=== PATIENT | male | born 1980 | race African-American/Black ===

== ENCOUNTER 2019-02-28 21:45 | Observation (INO) ==
[2019-02-28 22:31] LABS: BASO# 0.02 X1000 (0.0-0.2); BASO% 0.3 % (0.0-0.8); EOS# 0.06 X1000 (0.0-0.7); EOS% 0.9 % (0.0-10.0); HEMATOCRIT 38.2 % (42.0-52.0); LYMPH# 2.27 X1000 (1.2-3.4); LYMPH% 33.4 % (20.5-51.1); MCH 32.2 PG (27-31); MCV 94.6 FL (81-99); MONO# 0.55 X1000 (0.11-0.59); MONO% 8.1 % (1.7-9.3); MPV 10.4 FL (7.4-10.4); NEUT% 57.3 % (42.2-75.2); PLT 202 X1000 (130-400); RBC 4.04 XMIL (4.7-6.1); RDW 11.9 % (11.5-14.5)
[2019-02-28 22:40] LABS: AGAP 13; ALBUMIN 4.6 g/dL (3.5-5.0); ALKALINE PHOSPHATASE 49 U/L (32-122); BUN 9 mg/dL (8-22); CALCIUM 9.7 mg/dL (8.8-10.2); CHLORIDE 98 mmol/L (98-107); COSMO 269; CREATININE 0.6 mg/dL (0.7-1.2); ESTIMATED GFR > 60; GLUCOSE 103 mg/dL (70-104); GOT 35 U/L (10-34); GPT 17 U/L (10-44); POTASSIUM 3.7 mmol/L (3.5-5.1); SODIUM 135 mmol/L (136-145); TCO2 24 mmol/L (25-35); TOTAL PROTEIN 7.3 g/dL (6.3-8.3)
[2019-02-28 23:02] LABS: CK INDEX 0.7 (0.0-2.5); CK-MB 5.05 ng/mL (0.0-5.0)
--- NOTE | 2019-03-01 00:16 | EKG Report ---
Test Performed on : 02/28/2019 10:07:04 PM Test Reason : chest pain Blood Pressure : / mmHG Vent. Rate : 081 BPM Atrial Rate : 081 BPM P-R Int : 140 ms QRS Dur : 078 ms QT Int : 354 ms P-R-T Axes : 059 -32 028 degrees QTc Int : 411 ms Normal sinus rhythm. Left axis deviation Moderate voltage criteria for LVH, may be normal variant Abnormal ECG When compared with ECG of 25-JUL-2018 08:02, No significant change was found Unconfirmed Result
--- NOTE | 2019-03-01 00:24 | PROVIDER DOCUMENTATION ---
This chart was entered by Ambrocio Shields Scribe, acting as scribe for Flower Knight MD. HPI-General Adult - General Chief Complaint: Chest Pain Stated Complaint: BACK PAIN, ELEVATED HEART RATE Time Seen by Provider: 02/28/19 22:30 Source: patient, web editor Allergies/Adverse Reactions: Patient Allergies Allergy/AdvReac Type Severity Reaction Status Date / Time methylphenidate HCl * Allergy Unknown Unknown Verified 02/28/19 21:58 [From Ritalin] Home Medications: Home Medication List Medication Instructions Recorded Confirmed Last Taken Type Haloperidol Decanoate [Haloperidol 100 mg IM DIRECTED 05/08/13 09/16/17 07/16/13 History Decanoate 100] Divalproex Sodium [Divalproex 2,000 mg PO HS 07/20/13 09/16/17 06/12/15 21:00 History Sodium ER] Lisinopril 2.5 mg PO DAILY 07/20/13 09/16/17 06/13/15 07:00 History Lorazepam [Ativan] 1 mg PO BID 07/20/13 09/16/17 06/13/15 07:00 History Metformin HCl 500 gm MC DAILY 07/20/13 09/16/17 06/13/15 07:00 History Olanzapine 20 mg PO BID 07/20/13 09/16/17 06/13/15 07:00 History Ferrous Sulfate 325 mg PO QAM 09/16/17 09/16/17 Unknown History Mupirocin Ointment [Bactroban 1 applicatn TOP TID #1 tube 09/16/17 Unknown Rx Ointment] - History of Present Illness -Gen Adult Nature of Presenting Problems: Pt is a 38 yom who presents to the ED from a [facility] with a correctional casework specialist with a CC of chest pain. Pt's correctional casework specialist states the pt was laying in bed when he started having chest pain. Pt also complains of having back pain and states the pain is between his shoulders. Pt has a mental disability, which makes the HPI, ROS, and physical exam limited. Pt reports having reproducible chest wall pain. Pt complained of pain in multiple places on exam. Pt's correctional casework specialist denies the pt having a fever. Pt's correctional casework specialist also states the pt's blood pressure and heart rate were elevated at the [facility] tonight. Location of Pain/Injury: reports: chest, back, generalized Quality of Pain: reports: aching Severity: reports: mild Onset/Duration: reports: 1-3 hours ago Timing: reports: still present Associated Symptoms: reports: back/neck pain, chest pain, muscle aches Similar Symptoms Previously?: No Recently seen or treated by another doctor?: No Review of Systems - Adult - REVIEW OF SYSTEMS - ADULT Constitutional: reports: see HPI Eyes: reports: no symptoms reported Ears, Nose, Mouth & Throat: reports: no symptoms reported Cardiovascular: reports: see HPI, chest pain Respiratory: reports: no symptoms reported Gastrointestinal: reports: no symptoms reported Genitourinary: reports: no symptoms reported Musculoskeletal: reports: see HPI, back pain, muscle aches Integumentary: reports: no symptoms reported Neurological: reports: no symptoms reported Psychiatric: reports: no symptoms reported Endocrine: reports: no symptoms reported Hematologic/Lymphatic: reports: no symptoms reported Allergic/Immunologic: reports: no symptoms reported All Other Systems: Reviewed and Negative Past History - Adult - PAST MEDICAL HISTORY-ADULT Review of Records: reports: Old Records Reviewed, Nursing Assessment Review, Medications Reviewed, Social history reviewed & non-contributory. Major Childhood Illnesses: reports: denies history Cardiovascular: reports: HTN Respiratory: reports: denies history Gastrointestinal: reports: denies history Obstetrical/Gynecological: reports: denies history Genitourinary: reports: denies history Musculoskeletal: reports: denies history Neurological: reports: other (cognitive impairment) Psychiatric: reports: psychiatric problems, schizophrenia Endocrine/Immune: reports: Diabetes Other Conditions: reports: denies history - PRIOR SURGERIES/PROCEDURES Surgical/Procedure History: reports: none - PRIOR HOSPITALIZATIONS Prior Hospitalizations: reports: none - IMMUNIZATION STATUS Childhood Immunizations: See Nurse Assessment Flu Vaccine: See Nurse Assessment - FAMILY HISTORY Family History: reviewed, not pertinent - SOCIAL HISTORY Smoking: cigarettes, greater than 1 pack/day Substance Use: none/never, denies Alcohol Use Frequency: never Physical Exam-General - PHYSICAL EXAM-ADULT Initial Vital Signs Reviewed: Yes - CONSTITUTIONAL General Appearance: alert, mild distress - EYES Eyes: PERRL/EOMI, pink conjunctivae - HEAD, EARS, NOSE, MOUTH & THROAT HENMT: normocephalic/atraumatic, moist mucous membranes - NECK Neck: non-tender, full range of motion - RESPIRATORY Respiratory: lungs clear, normal breath sounds - CARDIOVASCULAR Cardiovascular: normal peripheral pulses, regular rate, rhythm - GASTROINTESTINAL (ABDOMEN) Abdominal Exam: non tender, soft - MUSCULOSKELETAL Extremity: normal range of motion, non-tender - SKIN Integumentary: normal color, warm/dry - NEUROLOGIC Neurologic: grossly normal, no motor/sensory deficits - PSYCHIATRIC Psych/Mental Status: normal mood/affect, normal thought content, normal thought process, oriented x 3 Progress - PLAN OF CARE/RESULTS Progress/Plan/Lab Results: Vital Signs - 8 hr 02/28/19 21:55 Temperature 98 F Pulse Rate 84 Respiratory Rate 16 Blood Pressure 144/88 O2 Sat by Pulse Oximetry 98 Laboratory Results - last 24 hr 02/28/19 22:13 WBC 6.80 RBC 4.04 L Hgb 13.0 L Hct 38.2 L MCV 94.6 MCH 32.2 H MCHC 34.0 RDW Std Deviation 11.9 Plt Count 202 MPV 10.4 Immature Gran % (Auto) 0.0 Neut % (Auto) 57.3 Lymph % (Auto) 33.4 [place] % (Auto) 8.1 Eos % (Auto) 0.9 Baso % (Auto) 0.3 Immature Gran # (Auto) 0.00 Neut # (Auto) 3.90 Lymph # (Auto) 2.27 [place] # (Auto) 0.55 Eos # (Auto) 0.06 Baso # (Auto) 0.02 Orders Category Date Time Status If abnormal EKG, order: NOW Care 02/28/19 21:58 Active CHEST-2 VIEWS [RAD] Stat Exams 02/28/19 21:58 Ordered CBC WITH DIFF [HEME] Stat Lab 02/28/19 22:13 Completed CK PROFILE [SP CHEM] Stat Lab 02/28/19 22:13 Received COMPREHENSIVE METABOLIC PANEL [CHEM] Stat Lab 02/28/19 22:13 Received TROPONIN T Stat Lab 02/28/19 22:13 Received CP/Palp <45 No Known Cardiac Hx Stat Oth 02/28/19 21:58 Ordered EKG [EKG] Stat Ther 02/28/19 21:58 Ordered Result Diagrams: 02/28/19 22:13 02/28/19 22:13 - EKG 1 Time of EKG reading by physician:: 22:07 EKG Read and Signed by:: lFower Knight EKG Interpretation (*Must complete 3 of following elements*): Abnormal (Moderate voltage criteria for LVH, may be normal variant; No STEMI) Rate: 81 Rhythm: NSR [place]: left QRS: normal [place] Interval: normal ST Wave: normal - CONSULTS/PCP/HOSPITALIST Notification #1 *Consult/PCP/Hospitalist*: d/w Dr Hamilton Time Discussed: 00:50 Consult Disposition: Admit Departure - Departure Date of Disposition Decision: 02/28/19 Time of Disposition Decision: 01:00 DIAGNOSIS: Chest pain Disposition: ADMITTED INPATIENT 09 Certified Medical Emergency: Emergent Condition: Stable Additional Instructions: ED Follow Up Instructions: You have been treated by a care provider in the Emergency Department. These instructions are being provided to you so you can have an understanding of how to care for yourself upon discharge. Upon discharge from the Emergency Department, you are responsible for making arrangements for follow-up care by a physician of your choice. Take all prescribed medications as directed. Return to the Emergency Department immediately for any new or worsening symptoms. You may call the Physician Referral phone number at [phone] to obtain a list of Physicians who are taking new patients. Referrals and Follow-Ups: None,PCP [Primary Care Provider] - - Critical Care Note This patient required my direct & personal management of CC.: No Attestation - Physician/ MALIKA Attestation Patient care was provided by Advanced Practice Provider:: No The physician spent face to face time with patient:: Yes Advanced Practice Provider documentation review:: Supervising physician onsite and consulted in the evaluation and care of this patient. The physician did have a face to face encounter with the patient. This chart was documented by the indicated [email or web address], (Ambrocio Shields Scribe) and accurately reflects the services I performed and decisions made by me, Flower Knight MD, as attested by the provider's signature.
[2019-03-01] MEDS ORDERED: ASPIRIN PO ONE (01:23)
--- NOTE | 2019-03-01 08:29 | Diag Imaging Result Doc PS360 ---
EXAM: CHEST-1 VIEW INDICATION: cp TECHNIQUE: One view COMPARISON: 07/25/2018 FINDINGS: Inspiration is suboptimal. The lungs are grossly clear. There is no discrete pleural fluid collection or pneumothorax. The cardiomediastinal silhouette and central vasculature are grossly unremarkable. IMPRESSION: Somewhat low lung volumes but no definite acute pathology by plain radiograph, otherwise. Electronically signed by Herbert Johnson 03/01/2019 8:27 AM
[2019-03-01 09:19] VITALS: BP 129/87
[2019-03-01] MEDS ORDERED: ZOFRAN IV PRN (12:34)
[2019-03-01] MEDS ORDERED: GEODON IM ONE (12:34)
[2019-03-01] MEDS ORDERED: STERILE WATER INJ. INJ ONE (12:34)
[2019-03-01] MEDS ORDERED: TYLENOL PO PRN (12:34)
[2019-03-01] MEDS ORDERED: PRINIVIL PO SCH (12:45)
[2019-03-01] MEDS ORDERED: ATIVAN PO SCH (12:45)
[2019-03-01] MEDS ORDERED: GLUCOPHAGE PO SCH (12:45)
[2019-03-01] MEDS ORDERED: FERROUS SULFATE PO SCH (12:45)
[2019-03-01] MEDS ORDERED: MYSOLINE PO SCH (12:45)
[2019-03-01] MEDS ORDERED: INDERAL PO SCH (12:45)
[2019-03-01] MEDS ORDERED: ZYPREXA PO SCH (12:45)
[2019-03-01] MEDS ORDERED: NICODERM PATCH TD SCH (12:45)
[2019-03-01] MEDS ORDERED: RISPERDAL PO SCH (12:45)
--- NOTE | 2019-03-01 15:14 | HISTORY AND PHYSICAL ---
CHIEF COMPLAINT: Generalized body ache and reported complaints of chest pain. HISTORY OF PRESENT ILLNESS: Mr. Emmett Gamez is a 38-year-old male with a medical history of schizoaffective disorder, essential tremors, diabetes mellitus type 2 diet medication controlled, who came in late [facility]er. Apparently the chief complaint was chest pain. Viscose Cellar Worker at that time stated that the patient was lying in bed when he started having chest pain complained of back pain, pain between his shoulders and at the time the chest wall pain was reproducible. During my examination it was not reproducible he just complained generalized body aches. There is no fever. All of his vital signs are stable. His lab work is also stable. Cardiac enzymes x3 are negative. There were no ST elevations on EKG. PAST MEDICAL HISTORY: 1. Schizoaffective disorder. 2. Essential tremors. 3. Diabetes mellitus type 2. 4. Mental disability. SURGICAL HISTORY: None. SOCIAL HISTORY: Less than a half pack per day smoker since the age of 22. Denies alcohol or illicit drug use. He lives [facility] a [facility]. FAMILY HISTORY: Unknown. ALLERGIES: Ritalin. HOME MEDICATIONS: 1. Ativan 1 mg p.o. twice a day. 2. Depakote extended release 1500 mg p.o. nightly. 3. Ferrous sulfate 325 mg p.o. daily. 4. Haldol 100 mg IM as directed looks like IM every 2 weeks. 5. Lisinopril 2.5 mg p.o. daily. 6. Metformin 500 mg p.o. daily. 7. Primidone 50 mg p.o. twice daily. 8. Olanzapine 10 mg p.o. twice daily. 9. Propranolol 20 mg p.o. twice daily. 10. Risperidone looks like 1 mg at 7 a.m., 2 mg at 7 p.m. 11. Nicotine patch. 12. Tylenol. REVIEW OF SYSTEMS: Fourteen point review of systems are complete, all are negative except for those mentioned above HPI. PHYSICAL EXAMINATION: VITAL SIGNS: Temperature 98.3 degrees, heart rate 110, respiratory rate 18, blood pressure 129/87, O2 saturation 99% on room air. GENERAL: Emmett Gamez 38-year-old man he is not in any acute distress. He is able to answer some questions appropriately. HEENT: Atraumatic, normocephalic. Pupils equal, round, reactive to light. Extraocular movements intact. Mucous membranes are dry. NECK: Trachea midline. CARDIOVASCULAR: S1, S2. Tachycardic rate and rhythm. No rubs, gallops, murmurs. No lower extremity edema, +2 dorsalis and radial pulses, negative JVD or carotid bruits. PULMONARY: Clear to auscultation bilateral breath sounds. No accessory muscle use or work of breathing noted. GI: Soft, nontender, nondistended. Positive bowel sounds x4. EXTREMITIES: INCOMPLETE REPORT -- DICTATION ENDS HERE. Dictated by OLEG Higuera for Khris Bey MD cc: OLEG Higuera MD
[2019-03-01] MEDS ORDERED: HUMULIN R (PARKWAY) SUBQ SCH (16:00)
--- NOTE | 2019-03-01 16:22 | HISTORY AND PHYSICAL ---
CONTINUATION: PHYSICAL EXAM: EXTREMITIES: He moves all extremities equally with decreased range of motion of the upper extremities. NEURO: Oriented to name, follows some simple commands. SKIN: Warm, dry, intact. LABORATORY DATA: White blood cells 6000, hemoglobin 13, hematocrit 38, platelet count 202,000, D- dimer 0.27. Sodium 135, potassium 3.7, BUN 9, creatinine 0.6, glucose 103, calcium 9.7, bilirubin 0.20, AST 35, ALT 17, CK 704, troponin less than 0.01, albumin 4.6. IMAGING: Chest x-ray, low lung volumes but no acute findings. EKG normal sinus rhythm, rate 81, QTc is 411. ASSESSMENT/PLAN: 1. Reported chest pain but currently only complains of generalized body ache, he is afebrile, he has no fever or elevated white blood cell count. He has 3 sets of negative cardiac enzymes. There is no ST elevations. 2. Diabetes mellitus type 2. Will do pattern blood glucose, sliding scale insulin. 3. Essential tremors. Continue propranolol. 4. Schizoaffective disorder. Continue all home medications for that. 5. Tobacco abuse, cessation discussed, nicotine patch ordered. 6. Deep venous thrombosis prophylaxis SCDs. Dictated by OLEG Higuera for Khris Bey MD cc: OLEG Higuera MD
[2019-03-01] MEDS ORDERED: DEPAKOTE ER PO SCH (21:00)
--- NOTE | 2019-03-02 08:51 | DISCHARGE SUMMARY ---
ADMISSION DATE: 03/01/2019 DISCHARGE DATE: 03/01/2019 ADMISSION/DISCHARGE DIAGNOSES: 1. Chest pain. Cardiac rule out. All enzymes are negative. No ST elevations and did not continue complaining of chest pain. 2. Schizoaffective disorder with some agitation. 3. Diabetes mellitus type 2. 4. Essential tremors. 5. Tobacco abuse. CONSULT: None. SURGERIES/PROCEDURES: None. HOSPITAL COURSE: Mr. Emmett Gamez is a 38-year-old male. He is in no acute distress, just some agitation from his schizoaffective disorder, currently stable. Vital signs are stable. He got a dose of Geodon while he was here for agitation. Complained of generalized body aches, but white blood cell count is normal and no fever, so he will be discharged home. DISCHARGE VITAL SIGNS: Temperature 98.3 degrees, heart rate 110, respiratory rate 18, blood pressure 129/87, O2 saturation 99% on room air. DISCHARGE LAB DATA: Same as what is on the admission H P. IMAGING: No changes. DISCHARGE MEDICATIONS: Ativan, Depakote, ferrous sulfate, Haldol, lisinopril, metformin, primidone, olanzapine, propranolol, risperidone, nicotine patch, and Tylenol. DISCHARGE INSTRUCTIONS: If your condition changes, contact physician and/or return to emergency department. Changes may include, but not limited to, shortness of breath, increased fatigue, excessive bleeding, unexplained weight loss or gain, unmanageable pain, signs or symptoms of infection. Diabetic diet. Activity as tolerated. DISCHARGE DISPOSITION: Home. PHYSICIAN FOLLOWUP: Primary care provider. Dictated by OLEG Higuera for Khris Bey MD Addendum: Patient seen and examined by myself. Agree with OLEG note. It reflects my assessment and plan. Patient is being discharged in stable condition. Will be seen by PCP in a week. cc: OLEG Higuera MD [facility]
== END 2019-03-01 15:00 | disposition home or self-care (01) ==
LOC: P.MEDSURG 21:45 → P.ED 21:45
PROVIDERS: ATTEND Internal Medicine